=== PATIENT | male | born 1985 | race Caucasian/White ===

== ENCOUNTER 2017-03-13 14:48 | Emergency (ER) | payer SELFPAY ==
[~2017-03-13] VITALS: Ht 195.6 cm; Wt 91.0 kg
[2017-03-13 17:20] VITALS: BP 110/60
== END 2017-03-13 17:42 | disposition home or self-care (01) ==
LOC: ER 14:56
DX: Z02.89 Encounter for other administrative examinations (principal); M54.2 Cervicalgia; M54.9 Dorsalgia, unspecified; W01.0XXA Fall on same level from slipping, tripping and stumbling without subsequent striking against object, initial encounter; Y93.89 Activity, other specified; Y92.89 Other specified places as the place of occurrence of the external cause
CPT/HCPCS: 99283

== ENCOUNTER 2017-05-29 13:45 | Emergency (ER) | payer SELFPAY ==
[~2017-05-29] VITALS: Ht 180.3 cm; Wt 70.0 kg
[2017-05-29] MEDS ORDERED: IBUPROFEN 800MG TABLET PO ONE (14:45)
[2017-05-29] MEDS ORDERED: VISCOUS LIDOCAINE 2% 15 ML UDC MM PRN (14:45)
[2017-05-29 16:28] VITALS: BP 94/61
== END 2017-05-29 16:33 | disposition home or self-care (01) ==
LOC: ER 14:48
DX: S16.1XXA Strain of muscle, fascia and tendon at neck level, initial encounter (principal); Y35.893A Legal intervention involving other specified means, suspect injured, initial encounter; Y93.9 Activity, unspecified; Y92.9 Unspecified place or not applicable
CPT/HCPCS: 72040; 99284

== ENCOUNTER 2019-05-28 10:55 | Emergency (ER) | payer OTHER ==
[~2019-05-28] VITALS: Ht 195.6 cm; Wt 79.0 kg
[2019-05-28 11:20] VITALS: BP 113/76
== END 2019-05-28 11:28 | disposition home or self-care (01) ==
LOC: ER 10:55
DX: S16.1XXA Strain of muscle, fascia and tendon at neck level, initial encounter (principal); F12.10 Cannabis abuse, uncomplicated; F17.210 Nicotine dependence, cigarettes, uncomplicated; X58.XXXA Exposure to other specified factors, initial encounter; Y93.89 Activity, other specified; Y92.89 Other specified places as the place of occurrence of the external cause
CPT/HCPCS: 99283